=== PATIENT | female | born 1935 | race Caucasian/White ===

== ENCOUNTER → 2018-04-11 | Outpatient (CLI) | payer OTHER ==
--- NOTE | 2018-04-11 15:53 | RAD ---
EXAM: CT Chest without IV contrast CLINICAL HISTORY: ABNORMAL CHEST XRAY, follow-up COMPARISON: No prior imaging is available for comparison. TECHNIQUE: CT of the chest without intravenous contrast. Axial, coronal and sagittal reformatted images were generated. ---PQRS compliance statement - One or more of the following individualized dose reduction techniques were utilized for this study: 1. Automated exposure control 2. Adjustment of the mA and/or kV according to patient size 3. Use of iterative reconstruction technique--- FINDINGS: Lack of intravenous contrast limits evaluation of solid organs, vasculature, and lymph nodes. Chest: The heart is enlarged. Coronary artery calcifications are seen. Dense mitral annular calcifications are seen. No pericardial effusion. There is ectasia of the ascending aorta measuring 3.8 cm. No mediastinal or hilar lymphadenopathy by size criteria although mildly prominent mediastinal lymph nodes are seen for example in AP window lymph node measures 1 x 0.7 cm. No axillary lymphadenopathy. No pleural effusion or pneumothorax. There is a right hilar consolidation/nodular masslike opacity measuring approximately 4 x 3.5 cm with peripheral surrounding groundglass opacity. In addition there is focal groundglass opacity with interstitial prominence in the anterior portion of the right upper lobe measuring 4.9 x 4.2 cm. A left upper lobe groundglass nodule measures 9 mm (image 21). A 4 mm lingular lung nodule (image 61) is seen. Visualized Upper abdomen: A few mildly prominent upper abdominal lymph nodes are seen, not enlarged by size criteria. Bones: Visualized osseous structures are grossly unremarkable. Degenerative changes of the spine are seen. IMPRESSION: Multiple solid and groundglass opacities are seen within the right lung including the right hilar region and right upper lobe as well as a groundglass nodule in the left upper lobe. Although malignancy is within the differential, given the peripheral groundglass nature and internal air bronchograms, inflammatory/infectious process may have similar appearance. This can be correlated with patient's history and consider short interval follow-up evaluation to assess for interval change. No mediastinal or hilar lymphadenopathy by size criteria although several prominent lymph nodes are seen. Electronically signed by: Say Woodruff MD (04/11/2018 3:50 PM) [place] [id number]
== END | disposition home or self-care (01) ==
LOC: CT 13:08
PROVIDERS: ATTEND Internal Medicine
DX: I77.810 Thoracic aortic ectasia (principal); R91.8 Other nonspecific abnormal finding of lung field; I51.7 Cardiomegaly; I25.10 Atherosclerotic heart disease of native coronary artery without angina pectoris
CPT/HCPCS: 71250

== ENCOUNTER → 2018-05-30 | Outpatient (CLI) | payer OTHER ==
--- NOTE | 2018-05-30 10:54 | RAD ---
Examination: CT chest without contrast HISTORY: History of follow-up abnormal chest CT COMPARISON: 04/11/2018 TECHNIQUE: Axial CT images of the chest were performed without contrast and coronal sagittal reformats are performed Exposure: One or more of the following individualized dose reduction techniques were utilized for this examination: 1. Automated exposure control 2. Adjustment of the mA and/or kV according to patient size 3. Use of iterative reconstruction technique FINDINGS: The visualized thyroid and grossly appears unremarkable. The central airways are patent. The ascending aorta measures 3.5 cm in transverse dimension. Coronary artery calcium indications identified. Mild aortic atherosclerosis There is focus of fall solid density identified in the medial right upper lobe of the lung abutting the mediastinum measuring 1.5 cm with surrounding faint groundglass airspace opacity measuring 4.2 x 4.1 cm similar to prior exam. There is a large focus of groundglass consolidation identified in the right lower lobe of the lung extending into the right middle lobe and in the right upper lobe abutting the junction of the fissures measuring 5.5 x 5.0 cm and causing narrowing of the right lower lobe bronchi increased since prior exam where it measured 4.0 x 3.5 cm per there is a small focus of groundglass opacity identified in the left upper lobe of the lung measuring 9 mm similar to prior exam. The visualized noncontrasted liver, spleen, adrenals grossly appears unremarkable. There is a cystic structure identified in the left kidney measuring 4.1 cm Mild degenerative changes identified in the thoracic spine. IMPRESSION: 1. Multiple solid and groundglass opacities in the right lung as described above. Neoplasm is a primary consideration. Other differential includes infectious or inflammatory etiology. 2. A 9 mm groundglass nodule identified in the left upper lobe of the lung. 3. Coronary artery calcifications. 4. Partially visualized cystic structure identified in the left kidney measuring 4.1 cm could be a cyst however evaluation limited without contrast. Electronically signed by: Edgardo Bates MD (05/30/2018 10:51 AM) [id number]
== END | disposition home or self-care (01) ==
LOC: CT 09:41
DX: I70.0 Atherosclerosis of aorta (principal); R91.1 Solitary pulmonary nodule; I25.10 Atherosclerotic heart disease of native coronary artery without angina pectoris
CPT/HCPCS: 71250

== ENCOUNTER → 2018-08-07 | Outpatient (CLI) | payer OTHER ==
--- NOTE | 2018-08-07 12:08 | RAD ---
Examination: CT chest without contrast HISTORY: History of follow-up abnormal CT scan COMPARISON: 05/30/2018 TECHNIQUE: Axial CT images of chest were performed without contrast. Coronal and sagittal reformats are performed Exposure: One or more of the following individualized dose reduction techniques were utilized for this examination: 1. Automated exposure control 2. Adjustment of the mA and/or kV according to patient size 3. Use of iterative reconstruction technique FINDINGS: The central airways are patent. The heart size grossly appears unremarkable. Coronary artery calcifications. Mild aortic atherosclerosis. There is probably nodule identified in the right upper lobe of the lung abutting the pleura medially measuring 1.5 cm with surrounding focal moderate groundglass opacities similar to prior exam. There is a focal groundglass opacity with the consolidation identified in the right middle and lower lobe of the lung in the right hilar region with air bronchograms similar to prior exam measuring 5.5 x 3.7 cm. Groundglass nodular opacity measuring 9 mm identified in the left upper lobe of the lung similar to prior exam. No evidence of pleural effusion or pneumothorax. The visualized liver, spleen, adrenals grossly appears unremarkable. Partially visualized cystic structures identified in the bilateral kidneys with the largest measuring 3.9 cm and the left kidney probably cyst. Moderate degenerative changes thoracic spine. IMPRESSION: 1. Focal moderate right hilar, right upper lobe groundglass and solid opacities identified are unchanged since prior exam. Slow-growing neoplasm is a primary consideration. Other possibility includes chronic inflammation. Consider PET CT scan follow-up. 2. 9 mm groundglass nodule identified in the left upper lobe lung similar to prior exam. Electronically signed by: Edgardo Bates MD (08/07/2018 12:03 PM) [facility]
== END | disposition home or self-care (01) ==
LOC: CT 10:53
PROVIDERS: ATTEND Internal Medicine Pulmonary Disease
DX: I73.9 Peripheral vascular disease, unspecified (principal); I25.10 Atherosclerotic heart disease of native coronary artery without angina pectoris; I70.0 Atherosclerosis of aorta; R91.1 Solitary pulmonary nodule; M47.814 Spondylosis without myelopathy or radiculopathy, thoracic region
CPT/HCPCS: 71250

== ENCOUNTER → 2018-12-19 | Outpatient (CLI) | payer OTHER ==
--- NOTE | 2018-12-19 16:57 | RAD ---
CT of the chest without contrast, 12/19/2018: HISTORY: Follow-up abnormal CT Noncontrast scans were obtained as requested and compared to a study from 08/07/2018 as well as the oldest available exam from 04/13/2017. There is a 2.4 x 1.6 cm spiculated soft tissue density in the medial aspect of the right upper lobe with adjacent groundglass and interstitial opacities. It is of similar size when compared to the 08/07/2018 exam but has definitely progressed since 04/13/2017. There is a right parahilar mass centered in the right lower lobe with adjacent groundglass and interstitial opacities. The solid components appear to have progressed slightly since 08/07/2018. There has been definite progression since 04/13/2017. A 9 mm faint groundglass opacity in the medial aspect of the left upper lobe is unchanged since 08/07/2018. There is moderate calcific plaquing of the thoracic aorta without evidence of aneurysm. Scattered coronary artery calcifications are present. The heart is not enlarged. Several small mediastinal lymph nodes are seen without evidence of pathologic enlargement. There is no evidence of pleural fluid. Mild scattered degenerative changes are present in the spine. IMPRESSION: 1. Enlarging right parahilar mixed solid and groundglass mass suggesting a slowly growing malignancy. 2. Smaller mass with similar CT characteristics in the medial aspect of the right upper lobe which is of similar size when compared to 08/07/2018 exam but has definitely increased in size since 04/13/2017. Malignancy is suspected. 3. Stable small groundglass opacity in the left upper lobe. 4. FDG/PET examination is suggested for further evaluation, if clinically indicated. PQRS Compliance Statement: One or more of the following individualized dose reduction techniques were utilized for this examination: 1. Automated exposure control 2. Adjustment of the mA and/or kV according to patient size 3. Use of iterative reconstruction technique Electronically signed by: Jim Webber MD (12/19/2018 4:54 PM) [facility]
== END | disposition home or self-care (01) ==
LOC: CT 10:40
PROVIDERS: ATTEND Internal Medicine Pulmonary Disease
DX: I70.0 Atherosclerosis of aorta (principal); I25.10 Atherosclerotic heart disease of native coronary artery without angina pectoris; R91.8 Other nonspecific abnormal finding of lung field; M47.814 Spondylosis without myelopathy or radiculopathy, thoracic region; I10 Essential (primary) hypertension; Z79.01 Long term (current) use of anticoagulants; Z86.73 Personal history of transient ischemic attack (TIA), and cerebral infarction without residual deficits
CPT/HCPCS: 71250

== ENCOUNTER → 2019-06-09 | Outpatient (CLI) | payer OTHER ==
--- NOTE | 2019-06-10 12:33 | RAD ---
Noncontrast CT scan of the chest compared to similar examination dated December 19, [address] scan, enlarging perihilar mass. TECHNIQUE: Contiguous helical 3 mm axial images are obtained from the thoracic inlet to the base of diaphragm. Sagittal and coronal reformations are evaluated. FINDINGS: There is redemonstration of a dominant right perihilar mixed solid and groundglass mass which contains some internal air bronchograms. The overall size and appearance is mass is stable, measuring 5.4 x 3.8 cm today, and there is no definite interval progression of the solid or groundglass components. There is also redemonstration of right upper lung similar-appearing mixed solid and groundglass mass which is also stable, with a solid component measuring 2.5 x 1.6 cm, and with no definite interval progression of either the solid or ground glass components. Also redemonstrated is a small ground glass nodule in the left upper lobe measuring 8 mm in diameter, stable. No new lung nodules or masses are seen. No pathologically enlarged mediastinal, hilar, or axillary lymphadenopathy is seen. Coarse calcifications are present in both breasts. Coronary artery calcifications and aortic calcification is again seen, along with mitral annular calcifications. Evaluation of the upper abdominal organs is limited by lack of IV contrast with no gross morphologic abnormalities. No suspicious osteoblastic or osteolytic bone lesions are evident. IMPRESSION: 1. Stable appearing mixed solid and groundglass masses in the right perihilar region as well as right upper lobe. These remain suspicious for malignancy. 2. Stable 8 mm groundglass nodule in the left upper lung, also concerning for malignancy and warranting continued surveillance. 3. No new lung nodules or masses and no evidence of suspicious adenopathy. 4. Other chronic changes as described. PQRS Compliance Statement: One or more of the following individualized dose reduction techniques were utilized for this examination: 1. Automated exposure control 2. Adjustment of the mA and/or kV according to patient size 3. Use of iterative reconstruction technique Electronically signed by: Keon Ontiveros MD (06/10/2019 12:31 PM) [facility]
== END | disposition home or self-care (01) ==
LOC: CT 10:55
PROVIDERS: ATTEND Internal Medicine Pulmonary Disease
DX: R91.1 Solitary pulmonary nodule (principal)
CPT/HCPCS: 71250

== ENCOUNTER → 2020-04-16 | Outpatient (CLI) | payer MEDICARE ==
--- NOTE | 2020-04-16 12:48 | RAD ---
Noncontrast CT scan of the chest compared to similar examination dated June 09, 2019 for lung mass. TECHNIQUE: Contiguous axial CT images are obtained through the chest. No IV contrast was administered. Sagittal and coronal reformations are evaluated. FINDINGS: There is redemonstration of 2 large mixed solid and groundglass masses on the right, the first of which is in the right upper lobe and the second which is in the right perihilar region. Both of these are grossly unchanged in overall appearance, but do demonstrate some subtle enlargement of the dominant central solid component. The largest of these is a right perihilar mass, which at its largest on series 2 image 126 and including groundglass component measures 7.2 x 5.0 cm AP and transversely, compared with prior measurements of 6.0 x 4.9 cm. The right upper lobe anterior pleural-based mass is seen at its largest on axial image 81 of series 2, with AP measurements of 5.4 x 5.2 cm, measurements of 5.0 x 4.4 cm. Previously noted groundglass nodule in the left upper lobe is grossly stable. No new lung nodules or masses are seen. Coronary artery calcified case are redemonstrated. Several small mediastinal lymph nodes are unchanged. Coarse calcifications are seen in the right breast, and there are vascular calcifications throughout both breasts. Evaluation of the upper abdominal organs is limited by lack of IV contrast, however no significant gross morphologic abnormalities are identified. There are no suspicious osteoblastic or osteolytic bone lesions. Degenerative changes are seen in the thoracic spine. IMPRESSION: 1. 2 mixed solid and groundglass masses in the right lung both which are notable for mild interval enlargement. 2. Stable groundglass nodule left upper lung. 3. No new lung nodules or masses and no suspicious adenopathy. 4. Other chronic changes as described. PQRS Compliance Statement: One or more of the following individualized dose reduction techniques were utilized for this examination: 1. Automated exposure control 2. Adjustment of the mA and/or kV according to patient size 3. Use of iterative reconstruction technique Electronically signed by: Keon Ontiveros MD (04/16/2020 12:45 PM) [id number]
== END ==
LOC: CT 11:05
PROVIDERS: ATTEND Internal Medicine
DX: R91.8 Other nonspecific abnormal finding of lung field (principal); M47.814 Spondylosis without myelopathy or radiculopathy, thoracic region
CPT/HCPCS: 71250

== ENCOUNTER → 2020-10-19 | Outpatient (CLI) | payer MEDICARE ==
--- NOTE | 2020-10-19 15:47 | RAD ---
EXAM: Carotid Doppler sonogram. HISTORY: Vision loss. Atherosclerosis. TECHNIQUE: Javier scale and color Doppler sonographic evaluation of the neck with spectral waveform gloria lysis was performed and static images are submitted for review. FINDINGS: There is atherosclerotic plaque within the carotid bulbs. The left internal carotid artery is tortuous. The peak systolic velocity within the right common carotid artery is 72 cm/sec. The peak systolic grecia ocity within the right internal carotid artery is 91 cm/sec and the end diastolic velocity within the right internal carotid artery is 17 cm/sec. The peak systolic velocity within the left common carotid artery is 136 cm/sec. The peak systolic grecia ocity within the left internal carotid artery is 130 cm/sec and the end diastolic velocity within the left internal carotid artery is 40 cm/sec. There is normal antegrade flow within both vertebral arteries. IMPRESSION: 1. Doppler findings suggesting 50-69 percent stenosis involving the left ICA and less than 20 percent stenosis involving the right ICA. 2. Mild atherosclerotic plaque involving the carotid bulbs. PQRS Compliance Statement - Stenosis calculations for CT, MR and conventional angiography are based u jacob measurement of the distal ICA diameter in accordance with the NASCET methodology. Stenosis calcu lations for carotid ultrasound studies are derived from validated velocity criteria which are known t o correlate with the NASCET methodology. Electronically signed by: Ginger Stokes MD (10/19/2020 3:45 PM) [id number]
--- NOTE | 2020-10-19 16:30 | RAD ---
EXAM: DUAL ENERGY X-RAY ABSORPTIOMETRY (DEXA). HISTORY: Postmenopausal screening. FINDINGS: The lowest measured T-score is -3.1 right hip in the 0.572, based on a bone mineral density of g/cm^2. Refer to the worksheets for full detail. No comparison examinations are available. IMPRESSION: 1. Osteoporosis. Bone mineral density yields a T-score of -2.5 or less. Fracture risk is high. 2. FRAX report: Not calculated. METHODOLOGY: Dual energy x-ray absorptiometry was performed to measure bone mineral density. The foll owing analysis is based on the 2019 Official Positions of the International Society for Clinical Dens itometry: Measurements of the hips and the average of L1-L4 are preferred. When the spine and/or hip cannot be feasibly measured or interpreted, or in the setting of hyperparathyroidism, distal radial bone minera l density may be measured. The lumbar spine T-score is based on the average bone mineral density of L1-L4. In the setting of art ifact or anatomic abnormality, some lumbar levels may be excluded, and the remaining levels used for calculation. A single lumbar level is not used for diagnosis, and if only a single level is available for assessment, another anatomic site will be used to assign a diagnosis. The hip T-score is based on the bone mineral density measurement of the femoral neck or total proxima l femur of either side, whichever is lowest. Bilateral mean values are not used for diagnosis. The forearm T-score is derived from 33% of the distal radius of the nondominant forearm. Electronically signed by: Ginger Stokes MD (10/19/2020 4:27 PM) [id number]
== END ==
LOC: US 14:55
PROVIDERS: ATTEND Nurse Practitioner Family
DX: H54.7 Unspecified visual loss (principal); M81.8 Other osteoporosis without current pathological fracture; I65.23 Occlusion and stenosis of bilateral carotid arteries; I10 Essential (primary) hypertension
CPT/HCPCS: 77080; 93880

== ENCOUNTER → 2020-12-02 | Outpatient (CLI) | payer MEDICARE ==
--- NOTE | 2020-12-02 12:25 | RAD ---
CT of the chest without contrast 12/02/2020 INDICATION: Follow-up abnormal CT scan. COMPARISON STUDY: CT scan of the chest without contrast April 16, 2020, June 09, 2019. TECHNIQUE: Multidetector CT imaging of the chest was performed without contrast FINDINGS: The dense areas of masslike consolidation in the right upper lobe, and right hilar region e xtending into the right lower and middle lobes have continued to slowly increase in size in the inter im. Surrounding groundglass opacity is seen. Bronchograms remain present, most notably in the superio r aspects of the left lower lobe. Changes in size and morphology perhaps best is appreciated sagittal ly, with a solid component of the upper lobe process measures 3 x 5.5 cm today and measured 1.7 x 4 cm on comparison study. The left lower lobe component measures up to 4.3 cm in diameter previously me asuring 3.6 cm in diameter. The middle lobe component has also increased in size. There is a small no dular focus with surrounding groundglass opacity in the left upper lobe measuring 6 mm in diameter. T here is no pneumothorax. Limited noncontrast enhanced evaluation the mediastinum demonstrates no defi nitive pathologically enlarged adenopathy. Limited visualization of the upper abdomen demonstrates no acute changes. Left renal cyst is noted. No acute osseous abnormality is identified. IMPRESSION: Continued progression of right upper, right lower lobe, middle lobe masslike consolidatio ns with surrounding groundglass opacity. Recommend correlation with tissue sampling, if not already p erformed. CT DOSING PQRS STATEMENT: One or more of the following individualized dose reduction techniques were utilized for this examinat ion: 1. Automated exposure control 2. Adjustment of the mA and/or kV according to patient size 3. Use of iterative reconstruction technique Electronically signed by: Dakota Lanier MD (12/02/2020 12:23 PM) [id number]
== END ==
LOC: CT 11:17
PROVIDERS: ATTEND Internal Medicine Pulmonary Disease
DX: R91.8 Other nonspecific abnormal finding of lung field (principal); N28.1 Cyst of kidney, acquired
CPT/HCPCS: 71250

== ENCOUNTER → 2021-09-12 | Outpatient (CLI) | payer MEDICARE ==
--- NOTE | 2021-09-12 15:22 | RAD ---
EXAM: Chest CT without intravenous contrast. HISTORY: Abnormal CT. Masslike consolidation. TECHNIQUE: Computed tomographic images of the chest were obtained without contrast. Multiplanar refor matting was performed. *One or more of the following individualized dose reduction techniques were utilized for this examina tion: 1. Automated exposure control. 2. Adjustment of the mA and/or kV according to patient size. 3. Use of iterative reconstruction technique. COMPARISON: 12/02/2020. 12/19/2018 FINDINGS: There is medial right upper lobe and right perihilar masslike consolidation with surroundin g groundglass and traversing air bronchograms. These lesions are stable to minimally increased compar ed to the prior exam. There is a stable 10 mm groundglass opacity within the medial left upper lobe. There are few additional tiny left upper lobe pulmonary nodules measuring 2 mm. The heart is normal in size. There is coronary artery calcification. There is dense calcification of the mitral valve annulus. There are stable mediastinal and hilar lymph nodes. These are nonspecific a nd not pathologically enlarged. There is stable adrenal gland thickening without a discrete nodule. There are simple renal cysts, par tially included on the [id number]. The larger of these measures 4.9 cm on the left. 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 The visualized portions o f the liver demonstrate no suspicious lesion. There is thoracic kyphosis. There is no suspicious osse ous lesion. There is a small calcification along the right paracentral posterior aspect of T11, possi esau due to a small amount of extruded or sequestered disc material. There is no associated mass effec t. IMPRESSION: 1. Stable to minimally increased medial right upper lobe and right perihilar masslike consolidation w ith surrounding groundglass and traversing air bronchograms compared to the most recent comparison ex am. These findings are increased compared to a study performed 12/19/2018. Despite the slow interval c hange, the differential includes neoplastic as well as postinfectious and post inflammatory etiologie s. Tissue sampling may be useful for definitive diagnosis, if not previously performed. 2. Stable small solid and groundglass nodular opacities within the left upper lobe measuring up to 10 mm. The interval stability favors benignity. Continued attention at the time of follow-up is indicat ed. Electronically signed by: Ginger Stokes MD (09/12/2021 3:20 PM) [id number]
== END ==
LOC: CT 11:33
PROVIDERS: ATTEND Internal Medicine Pulmonary Disease
DX: R91.8 Other nonspecific abnormal finding of lung field (principal); R93.89 Abnormal findings on diagnostic imaging of other specified body structures; I25.10 Atherosclerotic heart disease of native coronary artery without angina pectoris; R59.0 Localized enlarged lymph nodes; I72.8 Aneurysm of other specified arteries; N28.1 Cyst of kidney, acquired
CPT/HCPCS: 71250